=== PATIENT | male | born 1955 | race Caucasian/White ===

== ENCOUNTER → 2018-11-15 | Outpatient (CLI) | payer OTHER ==
--- NOTE | 2018-11-15 07:41 | US ---
EXAMINATION TYPE: US liver DATE OF EXAM: 11/15/2018 COMPARISON: NONE CLINICAL HISTORY: 63-year-old male R94.5 abnormal liver studies. Elevated liver enzymes TECHNIQUE: Multiple sonographic images of the right upper quadrant are obtained. FINDINGS: EXAM MEASUREMENTS: Liver Length: 15.4 cm Gallbladder Wall: 0.2 cm CBD: 0.5 cm Right Kidney: 10.1 x 4.9 x 5.0 cm Pancreas: Obscured by bowel gas Liver: Heterogeneous in appearance without focal lesion. Gallbladder: No abnormal distention, wall thickening, pericholecystic fluid, or shadowing calculi. Evidence for sonographic Ryan's sign: no CBD: appears wnl Right Kidney: no evidence of hydronephrosis IMPRESSION: Heterogeneous echotexture of the liver suggests underlying nonspecific hepatocellular disease. Correl ate with LFTs, liver profile, and patient risk factors.
[2018-11-15 08:21] LABS: INR 0.9 (<1.2); Prothrombin Time 10.2 sec (9.0-12.0)
[2018-11-15 08:32] LABS: Albumin 4.4 g/dL (3.5-5.0); Bilirubin, Delta 0.2 mg/dL (0.0-0.2); Bilirubin,Unconjugated 0.2 mg/dL (0.0-1.1); Total Bilirubin 0.4 mg/dL (0.2-1.3); Total Protein 7.2 g/dL (6.3-8.2)
[2018-11-15 08:33] LABS: HCT 38.4 % (39.0-53.0); HGB 13.5 gm/dL (13.0-17.5); MCH 34.7 pg (25.0-35.0); MCHC 35.1 g/dL (31.0-37.0); MCV 98.8 fL (80.0-100.0); Mean Platelet Volume 7.3; RBC 3.88 m/uL (4.30-5.90); RDW 13.8 % (11.5-15.5); WBC 5.6 k/uL (3.8-10.6)
[2018-11-15 08:34] LABS: Platelet Count 173 k/uL (150-450)
[2018-11-15 11:54] LABS: Iron Saturation 22.84 (15.00-50.00); Protein, Total 6.5 g/dL (6.2-8.2)
[2018-11-15 12:03] LABS: Alpha Fetoprotein, Tumor Mkr <2.5 ng/mL (0.0-7.9)
[2018-11-15 13:02] LABS: Ceruloplasmin 20.8 mg/dL (20.0-60.0)
[2018-11-15 13:27] LABS: Hepatitis A Antibody IgM Non-Reactive (Non-Reactive); Hepatitis B Core IgM Non-Reactive (Non-Reactive)
[2018-11-16 11:21] LABS: Albumin 3.94 g/dL (3.80-4.90); Gamma Globulin 0.81 g/dL (0.70-1.50)
== END ==
LOC: RADUSWWP 07:02
PROVIDERS: ATTEND Physician Assistant
DX: R94.5 Abnormal results of liver function studies (principal); E78.00 Pure hypercholesterolemia, unspecified
CPT/HCPCS: 76705; 80061; 80074; 80076; 82103; 82105; 82390; 82728; 83516; 83540; 83550; 84165; 85027; 85610; 86038

== ENCOUNTER 2022-07-09 19:03 | Emergency (ER) | payer OTHER ==
[2022-07-09] MEDS ORDERED: IBUPROFEN 600 MG TAB PO STA (22:00)
[2022-07-09] MEDS ORDERED: SODIUM CHLORIDE 0.9% 1,000 ML IV STA (22:00)
[2022-07-09] MEDS ORDERED: ACETAMINOPHEN TAB 500 MG TAB PO STA (22:00)
[2022-07-09] MEDS ORDERED: IPRATROPIUM-ALBUTEROL 3 ML NEB INHALATION STA (22:02)
--- NOTE | 2022-07-09 22:10 | ED ---
Fever HPI - General Chief Complaint: Fever Stated Complaint: Fever, congestion, sore throat Time Seen by Provider: 07/09/22 21:55 Source: patient, RN notes reviewed Mode of arrival: ambulatory Limitations: no limitations - History of Present Illness Initial Comments: This is a pleasant 66-year-old male who presents to the emergency department with fever, cough, nasal congestion that started at about 5 PM. Patient states he is also feeling very fatigued, had body aches, productive cough, states he is feeling somewhat better now. Symptoms started today. Patient does have a history of hypertension, hyperlipidemia, diabetes mellitus type 2. Condition is a cigarette smoker. no changes in vision or hearing, no sore throat or difficulty with speech, no neck pain, no chest pain or shortness of breath, no abdominal pain, no nausea or vomiting, no changes in urination or bowel movements, no numbness or tingling, no extremity pain, no skin rashes or lesions. Past medical, surgical, social, and family history reviewed. - Related Data Previous Rx's Medication Instructions Recorded Albuterol Inhaler [Ventolin Hfa 2 puff INHALATION Q4HR PRN #1 each 07/09/22 Inhaler] Azithromycin [Zithromax Z Pack] 1 tab PO DIRECTED #6 tab 07/09/22 cefUROXime axetiL [Cefuroxime] 500 mg PO BID #20 tab 07/09/22 Allergies Allergy/AdvReac Type Severity Reaction Status Date / Time No Known Allergies Allergy Verified 07/09/22 19:25 Review of Systems ROS Statement: Those systems with pertinent positive or pertinent negative responses have been documented in the HPI. ROS Other: All systems not noted in ROS Statement are negative. Past Medical History Past Medical History: Diabetes Mellitus, Hyperlipidemia, Hypertension History of Any Multi-Drug Resistant Organisms: None Reported Past Surgical History: No Surgical Hx Reported Past Psychological History: No Psychological Hx Reported Smoking Status: Current every day smoker Past Alcohol Use History: None Reported Past Drug Use History: Marijuana General Exam - General Exam Comments Initial Comments: Patient appears very mildly ill but not toxic. Moist mucous membranes, no mottling, normal capillary refill. Alert and oriented 4. Cranial nerves II through XII grossly intact Limitations: no limitations General appearance: alert, in no apparent distress Head exam: Present: atraumatic, normocephalic, normal inspection Eye exam: Present: normal appearance, PERRL, EOMI. Absent: scleral icterus, conjunctival injection, periorbital swelling ENT exam: Present: normal exam, normal oropharynx, mucous membranes moist, TM's normal bilaterally, normal external ear exam. Absent: mucous membranes dry Neck exam: Present: normal inspection, full ROM. Absent: tenderness, meningismus, lymphadenopathy Respiratory exam: Present: normal lung sounds bilaterally. Absent: respiratory distress, wheezes, rales, rhonchi, stridor, chest wall tenderness, decreased breath sounds, prolonged expiratory Cardiovascular Exam: Present: normal rhythm, tachycardia, normal heart sounds. Absent: systolic murmur, diastolic murmur, rubs, gallop, clicks GI/Abdominal exam: Present: soft, normal bowel sounds. Absent: distended, tenderness, guarding, rebound, rigid Extremities exam: Present: normal inspection, full ROM, normal capillary refill. Absent: tenderness, pedal edema, joint swelling, calf tenderness Back exam: Present: normal inspection Neurological exam: Present: alert, oriented X3, CN II-XII intact Psychiatric exam: Present: normal affect, normal mood. Absent: depressed, agitated, anxious, flat affect, manic, homicidal ideation, suicidal ideation Skin exam: Present: warm, dry, intact, normal color. Absent: rash Course Vital Signs 07/09/22 07/09/22 07/09/22 19:21 22:15 23:06 Temperature 103 F H 101.1 F H 99.7 F H Pulse Rate 117 H 100 92 Respiratory 20 20 16 Rate Blood Pressure 114/59 106/57 105/59 O2 Sat by Pulse 95 98 98 Oximetry 07/09/22 07/09/22 23:27 23:37 Temperature Pulse Rate 91 90 Respiratory Rate Blood Pressure O2 Sat by Pulse Oximetry Medical Decision Making - Medical Decision Making Was pt. sent in by a medical professional or institution? @ -no Did you speak to anyone other than the patient for history? @ -Spouse Did you review nursing and triage notes? @ -yes Were old charts reviewed? @ -no Differential Diagnosis? @ -Differential Fever: Pneumonia, viral URI, UTI, PID, prostatitis, , meningitis, encephalitis, pulmonary embolism, influenza, RSV, COVID-19, bacterial pneumonia, this is not meant to be an all-inclusive list. EKG interpreted by me (3pts min.)? @ -yes X-rays interpreted by me (1pt min.)? @ -yes What testing was considered but not performed? (CT, X-rays, U/S, labs)? Why? @ [none] What meds were considered but not given? Why? @ -[none] Did you discuss the management of the patient with other professionals? @ -[ED attending physician] Did you reconcile home meds? @ -[none] Was smoking cessation discussed for >3mins.? @ -I discussed smoking cessation for greater than 3 minutes. The risk of smoking were discussed with the patient including but not limited to risks of cancer, stroke, coronary artery disease and COPD. Also discussed with patient were multiple methods of quitting smoking. Lastly we discussed the financial cost of smoking. Was critical care preformed (if so, how long)? @ -[none] Were there social determinants of health that impacted care today? How? (Homelessness, low income, unemployed, alcoholism, drug addiction, transportation, low edu. Level, literacy, decrease access to med. care, fpc, rehab)? @ -[na] Was there de-escalation of care discussed even if they declined? (Discuss DNR or withdrawal of care, Hospice)? @ -[no] What co-morbidities impacted this encounter? (DM, HTN, Smoking, COPD, CAD, Cancer, CVA, Hep., AIDS, mental health diagnosis, sleep apnea, morbid obesity)? @ -[DM, HTN, Smoking, COPD, CAD, Cancer, CVA, Hep., AIDS, mental health diagnosis, sleep apnea, morbid obesity?] Was patient admitted / discharged? @ -Patient was seen and assessed for fever, cough. Patient really had no respiratory distress. Patient's viral testing as far as COVID-19, influenza, RSV TEST is negative. Patient did have a normal white blood cell count with low lymphocytes. This does make me worry of false negative viral testing. Patient suddenly could have other viral illnesses that cause acute bronchitis. However patient had increased markings on chest x-ray. I did decide to cover the patient with antibiotics. Patient received ceftriaxone and azithromycin here in the ER. Patient's vital signs stabilized. Patient remained hemodynamically stable here in the ER. Curb 65 score was 0. We did discuss admission versus discharge. Patient states she feels well enough to go home. Patient was discharged shared decision-making. Undiagnosed new problem with uncertain prognosis? @ -[none] Drug Therapy requiring intensive monitoring for toxicity (Heparin, Nitro, Insulin, Cardizem)? @ -[none] Were any procedures done? @ -[none] Diagnosis/symptom? @ -Community acquired pneumonia Acute, or Chronic, or Acute on Chronic? @ -Acute Uncomplicated (without systemic symptoms) or Complicated (systemic symptoms)? @ -Complicated Side effects of treatment? @ -[none] Exacerbation, Progression, or Severe Exacerbation] @ -[no] Poses a threat to life or bodily function? @ -Unlikely Patient was told to return to the ER for any signs or symptoms worsen. Told to return immediately if any other problems arise. All questions answered. Treatment plan discussed. Patient in agreement Every effort has been made to ensure accuracy of this dictation. However, due to the limitations of electronic medical records and dictation devices, errors in charting still occur. The case was discussed in detail with ED attending physician. Presentation, findings, treatment plan discussed in detail. Supervisory Dr. New - Lab Data Result diagrams: 07/09/22 22:21 07/09/22 22:21 Lab Results 07/09/22 07/09/22 07/09/22 Range/Units 19:28 22:21 22:21 WBC 8.4 (3.8-10.6) k/uL RBC 4.00 L (4.30-5.90) m/uL Hgb 13.3 (13.0-17.5) gm/dL Hct 36.4 L (39.0-53.0) % MCV 91.1 (80.0-100.0) fL MCH 33.2 (25.0-35.0) pg MCHC 36.4 (31.0-37.0) g/dL RDW 12.2 (11.5-15.5) % Plt Count 170 (150-450) k/uL MPV 7.8 Neutrophils % 83 % Lymphocytes % 7 % Monocytes % 7 % Eosinophils % 0 % Basophils % 0 % Neutrophils # 7.0 (1.3-7.7) k/uL Lymphocytes # 0.6 L (1.0-4.8) k/uL Monocytes # 0.6 (0-1.0) k/uL Eosinophils # 0.0 (0-0.7) k/uL Basophils # 0.0 (0-0.2) k/uL Sodium (137-145) mmol/L Potassium (3.5-5.1) mmol/L Chloride (98-107) mmol/L Carbon Dioxide (22-30) mmol/L Anion Gap mmol/L BUN (9-20) mg/dL Creatinine (0.66-1.25) mg/dL Est GFR (CKD-EPI)AfAm (>60 ml/min/1.73 sqM) Est GFR (CKD-EPI)NonAf (>60 ml/min/1.73 sqM) Glucose (74-99) mg/dL Plasma Lactic Acid Hay (0.7-2.0) mmol/L Calcium (8.4-10.2) mg/dL Total Bilirubin (0.2-1.3) mg/dL AST (17-59) U/L ALT (4-49) U/L Alkaline Phosphatase (38-126) U/L Troponin I (0.000-0.034) ng/mL Total Protein (6.3-8.2) g/dL Albumin (3.5-5.0) g/dL TSH (0.465-4.680) mIU/L Urine Color Yellow Urine Appearance Clear (Clear) Urine pH 6.0 (5.0-8.0) Ur Specific [place] 1.021 (1.001-1.035) Urine Protein Trace H (Negative) Urine Glucose (UA) Negative (Negative) Urine Ketones Negative (Negative) Urine Blood Negative (Negative) Urine Nitrite Negative (Negative) Urine Bilirubin Negative (Negative) Urine Urobilinogen <2.0 (<2.0) mg/dL Ur Leukocyte Esterase Negative (Negative) Influenza Type A (PCR) Not Detected (Not Detectd) Influenza Type B (PCR) Not Detected (Not Detectd) RSV (PCR) Not Detected (Not Detectd) SARS-CoV-2 (PCR) Not Detected (Not Detectd) 07/09/22 07/09/22 07/09/22 Range/Units 22:21 22:21 22:21 WBC (3.8-10.6) k/uL RBC (4.30-5.90) m/uL Hgb (13.0-17.5) gm/dL Hct (39.0-53.0) % MCV (80.0-100.0) fL MCH (25.0-35.0) pg MCHC (31.0-37.0) g/dL RDW (11.5-15.5) % Plt Count (150-450) k/uL MPV Neutrophils % % Lymphocytes % % Monocytes % % Eosinophils % % Basophils % % Neutrophils # (1.3-7.7) k/uL Lymphocytes # (1.0-4.8) k/uL Monocytes # (0-1.0) k/uL Eosinophils # (0-0.7) k/uL Basophils # (0-0.2) k/uL Sodium 131 L (137-145) mmol/L Potassium 4.2 (3.5-5.1) mmol/L Chloride 98 (98-107) mmol/L Carbon Dioxide 25 (22-30) mmol/L Anion Gap 8 mmol/L BUN 18 (9-20) mg/dL Creatinine 1.34 H (0.66-1.25) mg/dL Est GFR (CKD-EPI)AfAm 65 (>60 ml/min/1.73 sqM) Est GFR (CKD-EPI)NonAf 56 (>60 ml/min/1.73 sqM) Glucose 110 H (74-99) mg/dL Plasma Lactic Acid Hay 1.3 (0.7-2.0) mmol/L Calcium 9.0 (8.4-10.2) mg/dL Total Bilirubin 0.4 (0.2-1.3) mg/dL AST 22 (17-59) U/L ALT 18 (4-49) U/L Alkaline Phosphatase 63 (38-126) U/L Troponin I <0.012 (0.000-0.034) ng/mL Total Protein 6.8 (6.3-8.2) g/dL Albumin 4.4 (3.5-5.0) g/dL TSH 0.573 (0.465-4.680) mIU/L Urine Color Urine Appearance (Clear) Urine pH (5.0-8.0) Ur Specific [place] (1.001-1.035) Urine Protein (Negative) Urine Glucose (UA) (Negative) Urine Ketones (Negative) Urine Blood (Negative) Urine Nitrite (Negative) Urine Bilirubin (Negative) Urine Urobilinogen (<2.0) mg/dL Ur Leukocyte Esterase (Negative) Influenza Type A (PCR) (Not Detectd) Influenza Type B (PCR) (Not Detectd) RSV (PCR) (Not Detectd) SARS-CoV-2 (PCR) (Not Detectd) - EKG Data EKG Comments: EKG read at 2208 5 me independently reveals normal sinus rhythm with a rate of 103. Normal MA interval, other intervals are also normal. Patient does have the occasional PAC noted. EKG does show heart are variability but does have evidence of P waves, T waves of different morphology noted at times, possible PAC, possible multifocal. No comparison study - Radiology Data Radiology results: report reviewed, image reviewed Chest x-ray interpreted independently by me reveals evidence of increased lung markings bilaterally. Increased markings in the left lingular area and possibly left retrocardiac area indicates possible early pneumonia. I did review the radiology interpretation which was read as no acute findings. Disposition Clinical Impression: Community acquired pneumonia, Cigarette smoker Disposition: HOME SELF-CARE Condition: Good Instructions (If sedation given, give patient instructions): How to Stop Smoking (ED), Fever in Adults (ED), Community Acquired Pneumonia (ED) Additional Instructions: Take all antibiotics as directed. Alternate acetaminophen and ibuprofen every 3-4 hours for fever control. Follow-up with your regular physician for reevaluation. Follow-up with your regular physician as directed. Return to the ER immediately if any symptoms worsen, new symptoms arise, or any other problems develop. Albuterol 2 puffs every 4 hours as needed for shortness of breath or coughing Prescriptions: cefUROXime axetiL [Cefuroxime] 500 mg PO BID #20 tab Albuterol Inhaler [Ventolin Hfa Inhaler] 2 puff INHALATION Q4HR PRN #1 each PRN Reason: Wheezing Azithromycin [Zithromax Z Pack] 1 tab PO DIRECTED #6 tab Is patient prescribed a controlled substance at d/c from ED?: No Referrals: Frederick Vergara DO [Primary Care Provider] - 07/12/22 Time of Disposition: 23:58
--- NOTE | 2022-07-09 22:37 | XR ---
EXAMINATION TYPE: XR chest 2V DATE OF EXAM: 07/09/2022 COMPARISON: 06/23/2015 HISTORY: Cough TECHNIQUE: FINDINGS: Heart and mediastinum are within normal limits. Lungs are clear. Diaphragm is normal. Bony thorax is intact. There are chest leads. IMPRESSION: No active cardiopulmonary disease. Normal heart. No adverse change.
[2022-07-09 22:50] LABS: Basophils % (A) 0 %; Eosinophils % (A) 0 %; HCT 36.4 % (39.0-53.0); HGB 13.3 gm/dL (13.0-17.5); Lymphocytes # (A) 0.6 k/uL (1.0-4.8); Lymphocytes % (A) 7 %; MCH 33.2 pg (25.0-35.0); MCHC 36.4 g/dL (31.0-37.0); MCV 91.1 fL (80.0-100.0); Mean Platelet Volume 7.8; Monocytes # (A) 0.6 k/uL (0-1.0); Monocytes % (A) 7 %; Neutrophils % (A) 83 %; Platelet Count 170 k/uL (150-450); RDW 12.2 % (11.5-15.5); WBC 8.4 k/uL (3.8-10.6)
[2022-07-09] MEDS ORDERED: AZITHROMYCIN 500 MG in SODIUM CHLORIDE 0.9% 250 ML IVPB STA (22:53)
[2022-07-09 23:06] LABS: Appearance,Urine Clear (Clear); Bilirubin,Urine Negative (Negative); Blood,Urine Negative (Negative); Color,Urine Yellow; Glucose,Urine (UA) Negative (Negative); Ketones,Urine Negative (Negative); Leukocyte Esterase,Urine Negative (Negative); Nitrite,Urine Negative (Negative); Protein,Urine Trace (Negative); Specific Gravity,Urine 1.021 (1.001-1.035); Urobilinogen,Urine <2.0 mg/dL (<2.0)
[2022-07-09 23:07] VITALS: RESP 16
[2022-07-09 23:18] LABS: ALT 18 U/L (4-49); AST 22 U/L (17-59); African American GFR (CKD) 65 (>60 ml/min/1.73 sqM); Albumin 4.4 g/dL (3.5-5.0); Alkaline Phosphatase 63 U/L (38-126); Anion Gap 8 mmol/L; Blood Urea Nitrogen 18 mg/dL (9-20); Carbon Dioxide 25 mmol/L (22-30); Chloride 98 mmol/L (98-107); Glucose 110 mg/dL (74-99); Non-African American GFR(CKD) 56 (>60 ml/min/1.73 sqM); Potassium 4.2 mmol/L (3.5-5.1); Sodium 131 mmol/L (137-145); Total Bilirubin 0.4 mg/dL (0.2-1.3); Total Protein 6.8 g/dL (6.3-8.2)
[2022-07-10 00:22] VITALS: BP 110/62; PULSE 88; TEMP 98.9
== END 2022-07-10 00:23 | disposition home or self-care (01) ==
LOC: EC 19:03
DX: J18.9 Pneumonia, unspecified organism (principal); F17.210 Nicotine dependence, cigarettes, uncomplicated; E11.9 Type 2 diabetes mellitus without complications; I10 Essential (primary) hypertension; F12.90 Cannabis use, unspecified, uncomplicated; Z20.822 Contact with and (suspected) exposure to COVID-19
CPT/HCPCS: 36415; 94640; 93005; 80053; 84443; 83605; 84484; 85025; 81003; 87040; 87636; 71046; 99284; 96365; 96367; 96361; J0456; J0696

== ENCOUNTER 2023-09-19 11:36 | Day surgery (SDC) | payer MEDICARE ==
[2023-09-16 11:12] VITALS: BMI 25.8
[~2023-09-19 11:36] MED LIST: LIDOCAINE 1% (10MG/ML) FOR IV START INTRADERMA PRN
[2023-09-19 12:21] VITALS: TEMP 97.9
[2023-09-19] MEDS: LACTATED RINGERS 1,000 ML IV SCH (12:24)
[2023-09-19 12:27] LABS: Glucose,Whole Blood 100 mg/dL (70-110)
[2023-09-19] MEDS ORDERED: LIDOCAINE 1% INJ 10MG/ML (20 ML MDV) ONE (13:07)
[2023-09-19] MEDS ORDERED: PROPOFOL 10 MG/ML 20 ML VIAL IV ONE (13:07)
[2023-09-19] MEDS ORDERED: PHENYLEPHRINE-0.9% NACL SYG 1,000 MCG/10 ML SYRINGE ONE (13:07)
--- NOTE | 2023-09-19 13:12 | P.GSHP ---
History of Present Illness H&P Date: 09/19/23 Chief Complaint: Screening colonoscopy The cystic 8-year-old male presents today for screening colonoscopy patient denies a significant GI complaints. Past Medical History Past Medical History: Diabetes Mellitus, Hyperlipidemia, Hypertension History of Any Multi-Drug Resistant Organisms: None Reported Past Surgical History: No Surgical Hx Reported Additional Past Surgical History / Comment(s): COLONOSCOPY Past Anesthesia/Blood Transfusion Reactions: No Reported Reaction Additional Past Anesthesia/Blood Transfusion Reaction / Comment(s): NO BLOOD TRANSFUSION Smoking Status: Current every day smoker Medications and Allergies Home Medications Medication Instructions Recorded Confirmed Type Gabapentin [Neurontin] 300 mg PO BID 09/16/23 09/19/23 History Lisinopril-Hctz 20-12.5 mg 1 tab PO DAILY 09/16/23 09/19/23 History [Zestoretic 20-12.5] Rosuvastatin [Crestor] 20 mg PO DAILY 09/16/23 09/19/23 History cilostazoL [Pletal] 100 mg PO BID 09/16/23 09/19/23 History metFORMIN HCL 500 mg PO DAILY 09/16/23 09/19/23 History traZODone HCL [Desyrel] 50 mg PO HS 09/16/23 09/19/23 History Allergies Allergy/AdvReac Type Severity Reaction Status Date / Time No Known Allergies Allergy Verified 09/19/23 12:04 Surgical - Exam Vital Signs Temp Pulse Resp BP Pulse Ox 97.9 F 79 20 112/70 99 09/19/23 12:13 09/19/23 12:13 09/19/23 12:13 09/19/23 12:13 09/19/23 12:13 - General well developed, well nourished, no distress - Eyes PERRL - ENT normal pinna - Neck no masses - Respiratory normal expansion - Cardiovascular Rhythm: regular - Abdomen Abdomen: soft, non tender Assessment and Plan Assessment: We'll perform screening colonoscopy
[2023-09-19 14:05] VITALS: BP 108/72; PULSE 72; RESP 16
--- NOTE | 2023-09-19 16:37 | FL ---
EXAMINATION TYPE: FL single contrast barium enema DATE OF EXAM: 09/19/2023 COMPARISON: NONE HISTORY: 68-year-old male incomplete colonoscopy, routine screening TECHNIQUE: A single contrast barium enema study is performed. A total of 2 minutes 7 seconds of flu oroscopic time was utilized during procedure and 72 images obtained. Total dose area product (DAP) i n uGy*m?, mGy*cm? (or similar): 50. FINDINGS: Operating Systems Specialist view of the abdomen shows prominent retained air throughout the colon. Decision is m angel luis to proceed with a single contrast exam. Overall non-obstructive bowel gas pattern. Possibly mariana meter calcification in the right kidney. Bilateral pelvic limits. There is prominent redundancy of the sigmoid colon limiting visualization. Sigmoid diverticulosis. Th ere is a focal area of persistent irregularity seen along the upper ascending colon particularly on t he spot images. Otherwise, no evidence of any mass or polyp, obstructing or constricting lesion throughout the colon. Appendix was filled and appears patulous, likely anatomic variation. No refluxing into the terminal i leum. IMPRESSION: 1. Retained prominent air in the colon. Decision was made to proceed with a single contrast exam. 2. There is some persistent focal irregularity along the upper ascending colon particularly on the sp ot images. Unclear if this reflects incomplete prep with adherent stool vs an underlying mucosal lesi on. Correlate with fecal occult blood testing. Either short interval follow-up versus further assessm ent such as with virtual CT colonography. 3. Redundancy of the sigmoid colon leads to some limitation in assessment due to bowel overlap. There is sigmoid diverticulosis. No definite lesion along this region.
--- NOTE | 2023-10-06 14:33 | P.OP ---
Date of Procedure: 09/19/23 Preoperative Diagnosis: screening colonoscopye Postoperative Diagnosis: diverticulosis Procedure(s) Performed: colonoscopy Anesthesia: MAC Surgeon: Tin Bowling Pathology: none sent Condition: stable Disposition: PACU Description of Procedure: the patient placed on the operating table in the lateral position. He received IV sedation. Digital rectal exam performed. This revealed no abnormalities. Colonoscope was then placed patient anus and passed through the colon. The colonoscope could not be advanced beyond the sigmoid colon secondary to severe diverticulosis. At this point scope was drawn. Large diverticuli were seen. Scope was then brought back to the rectum this. No appearance of withdrawal with patient. Patient was scheduled for a barium enema.
== END 2023-09-19 14:36 | disposition home or self-care (01) ==
LOC: ORWHC2ENDO 11:36
PROVIDERS: ATTEND Surgery
DX: Z12.11 Encounter for screening for malignant neoplasm of colon (principal); K57.30 Diverticulosis of large intestine without perforation or abscess without bleeding; I10 Essential (primary) hypertension; E78.5 Hyperlipidemia, unspecified; E11.9 Type 2 diabetes mellitus without complications; F17.200 Nicotine dependence, unspecified, uncomplicated; Z79.02 Long term (current) use of antithrombotics/antiplatelets; Z79.84 Long term (current) use of oral hypoglycemic drugs; Z79.899 Other long term (current) drug therapy
CPT/HCPCS: 74280; J2001; J2704; J2371; G0121